=== PATIENT | female | born 1945 | race Caucasian/White ===

== ENCOUNTER → 2017-05-19 | Outpatient (CLI) | payer MEDICARE, OTHER | LOC: MC.RAD 12:54 | DX: Z12.31 Encounter for screening mammogram for malignant neoplasm of breast (principal) ==

== ENCOUNTER → 2018-07-12 | Outpatient (CLI) | payer MEDICARE, OTHER | LOC: MC.RAD 06-07 15:00 | DX: Z12.31 Encounter for screening mammogram for malignant neoplasm of breast (principal) ==

== ENCOUNTER → 2019-07-25 | Outpatient (CLI) | payer MEDICARE, OTHER | LOC: MC.RAD 15:27 | DX: Z12.31 Encounter for screening mammogram for malignant neoplasm of breast (principal) ==

== ENCOUNTER → 2020-08-02 | Outpatient (CLI) | payer MEDICARE, OTHER | LOC: MC.RAD 14:12 | DX: Z12.31 Encounter for screening mammogram for malignant neoplasm of breast (principal) ==

== ENCOUNTER → 2021-01-31 | Outpatient (CLI) | payer MEDICARE, OTHER ==
[~2021-01-31] VITALS: Ht 160 cm; Wt 62.6 kg
[~2021-01-31] MED LIST: CALCIUM 600MG+D1 TAB PO; CLARITIN 1010 MG/TAB PO; CLIMARA 0.1 PATCH.WK TD; COLACE 100100 MG/CAP PO; FOLIC ACID 11 MG/TA1 PO; LIPITOR 40MG TA40 MG PO; MOBIC15 MG PO; MYRBETR50MG PO; SYNTHROID0.075 MG/T PO; TYLENOL 325MG325 MG PO; TYLENOL 500MG500 MG PO; XALATAN EYE DROPS OU
[2021-01-31 13:06] VITALS: BP 157/83; PULSE 66
[2021-01-31 15:00] VITALS: BP 164/87; PULSE 70
== END ==
LOC: COL.RAD
DX: M54.16 Radiculopathy, lumbar region (principal)
CPT/HCPCS: J3301

== ENCOUNTER 2021-02-28 11:33 | Outpatient (CLI) | payer MEDICARE, OTHER ==
[~2021-02-28] VITALS: Ht 160 cm; Wt 62.2 kg
[~2021-02-28 11:33] MED LIST changes: -TYLENOL 500MG500 MG PO
[2021-02-28 11:48] VITALS: BP 147/75; PULSE 75
[2021-02-28 13:30] VITALS: BP 157/80; PULSE 72
--- NOTE | 2021-02-28 14:40 | NUR ---
Report received from Deena RODRIGUEZ, pt continues to have numbness in left lower leg from knee to toes. Right leg is only slightly numb. Bilat buttocks continues to be numb. Pt able to feel tops of both legs. Denies pain at this time. Will continue to monitor pt. Denies any needs at this time.
--- NOTE | 2021-02-28 14:54 | NUR ---
Pt reports continued numbness in lower left leg. Pt requests to recline back in recliner and warm blanket given to pt. Light turned off. Pt will attempt to take a nap.
--- NOTE | 2021-02-28 15:37 | NUR ---
Pt reports right leg is less numb. Left leg continues to be unchanged up to buttock. Pt given nicci crackers and peanut butter to eat. Dr Elizondo notified of pts condition and pt is transfering to [facility] unit.
--- NOTE | 2021-02-28 15:58 | NUR ---
Pt transported to per wheelchair. Pt into bathroom to void with assistance of 2 nurses. Pt able to move legs and transfer to stool and then back to wheelchair. Pt able to walk with nurse and sit and lay down in bed. Report to Delores RODRIGUEZ, care assumed.
--- NOTE | 2021-02-28 18:46 | NUR ---
Pt to exit via wheelchair. Pt has almost fully recovered, she has been ambulatory to bathroom with stand by assist, and feels safe to go home. During her time here in [facility] she has been doing fine with sensation and motor slowly returning to left leg. She has been up to br x 3, the first two trips by wheelchair, and 3rd ambulatory. Pt denies any questions about her discharge instructions.
[2021-03-24] MEDS ORDERED: TYLENOL 500MG500 MG PO (08:33)
== END 2021-02-28 19:09 | disposition home or self-care (01) ==
LOC: COL.RAD 11:33
DX: M51.36 Other intervertebral disc degeneration, lumbar region (principal)
CPT/HCPCS: J3301

== ENCOUNTER 2021-03-27 06:29 | Outpatient (CLI) | payer MEDICARE, OTHER ==
[~2021-03-27] VITALS: Ht 160 cm; Wt 60.1 kg
[~2021-03-27 06:29] MED LIST changes: +TYLENOL 500MG500 MG PO
[2021-03-27 06:48] VITALS: BP 121/74; PULSE 75
[2021-03-27 08:09] VITALS: BP 136/66; PULSE 69
--- NOTE | 2021-03-27 10:20 | NUR ---
I HAVE CHECKED ON PATIENT EVERY 15-30 MINUTES AND SHE STILL REPORTS THAT HER BOTTOM IS NUMB. PT HAS BEEN UP ONCE TO VOID. DR RAPHAEL WAS IN EARLIER TO VISIT WITH PT.
--- NOTE | 2021-03-27 11:33 | NUR ---
Report from JENNIFER Shaffer.
--- NOTE | 2021-03-27 11:36 | NUR ---
pt taken to room 13. care transfered to [facility], report given.
--- NOTE | 2021-03-27 13:27 | NUR ---
Pt assisted to bathroom by Lino Estrella.per pt report her legs feel better.Pt requests to wait a while longer befoer discharge.
--- NOTE | 2021-03-27 14:15 | NUR ---
Pt assisted to bathroom.Observed steady gait with standby assist.Pt requests to rest 30 more minutes then she reports she will call her for a ride home.
--- NOTE | 2021-03-27 15:03 | NUR ---
Pt escorted out via wheelchair by this nurse.
== END 2021-03-27 15:03 | disposition home or self-care (01) ==
LOC: COL.RAD 06:29
DX: M51.36 Other intervertebral disc degeneration, lumbar region (principal); M48.061 Spinal stenosis, lumbar region without neurogenic claudication
CPT/HCPCS: J3301; Q9967

== ENCOUNTER → 2022-03-10 | Outpatient (CLI) | payer MEDICARE, OTHER | LOC: MC.RAD 14:12 | DX: Z12.31 Encounter for screening mammogram for malignant neoplasm of breast (principal) ==

== ENCOUNTER 2022-06-10 10:28 | Emergency (ER) | payer MEDICARE, OTHER ==
[~2022-06-10] VITALS: Ht 160 cm; Wt 63.6 kg
[2022-06-10 10:29] VITALS: TEMP 98
[2022-06-10] MEDS ORDERED: NORCO 325 MG-51 TAB PO (12:13)
[2022-06-10] MEDS ORDERED: AMOXICILLIN 8751 TAB PO (12:13)
[2022-06-10] MEDS ORDERED: ZOFRAN ODT4 MG PO (12:13)
[2022-06-10 12:44] VITALS: BP 128/72; PULSE 61
== END 2022-06-10 12:45 | disposition home or self-care (01) ==
LOC: COL.ER 10:28
DX: S80.851A Superficial foreign body, right lower leg, initial encounter (principal); Z87.891 Personal history of nicotine dependence
CPT/HCPCS: J0690; J1170

== ENCOUNTER → 2024-08-30 | Outpatient (REF) | payer MEDICARE, OTHER ==
[~2024-08-30] MED LIST changes: +AMOXICILLIN 8751 TAB PO; +NORCO 325 MG-51 TAB PO; +ZOFRAN ODT4 MG PO
[2024-08-30 19:45] LABS: BASOPHIL 1 % (0-2); EOSINOPHIL 4 % (0-4); LYMPHOCYTE 30 % (20.0-51.0); NEUTROPHILS 52 % (42.0-75.2)
[2024-08-30 19:46] LABS: PLATELET ESTIMATE NORMAL (NORMAL)
== END ==
LOC: ZCOL.LAB 18:32
PROVIDERS: Family Medicine
DX: C92.11 Chronic myeloid leukemia, BCR/ABL-positive, in remission (principal)